=== PATIENT | female | born 2000 | race Hispanic/Latino ===

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

== ENCOUNTER 2022-01-22 22:06 | Emergency (ER) | payer MEDICAID ==
--- NOTE | 2022-01-23 02:18 | Emergency Department Report ---
ED General Adult HPI - General Chief complaint: Dental/Oral Stated complaint: BROKEN STITCH Source: patient Mode of arrival: Ambulatory Limitations: No Limitations - History of Present Illness Complaint: dental pain, swollen painful gums -: Sudden, week(s) (1) Location: mouth Radiation: non-radiation Severity scale (0 -10): 8 Quality: aching, sharp Consistency: constant Improves with: none Worsens with: eating Associated Symptoms: denies other symptoms. denies: confusion, chest pain, cough, fever/chills, headaches, loss of appetite, malaise, nausea/vomiting, shortness of breath, syncope, weakness Treatments Prior to Arrival: none - Related Data Home Medications Medication Instructions Recorded Confirmed Last Taken Citalopram [celeXA] 20 mg PO QDAY 11/25/21 11/25/21 11/23/21 Methylphenidate HCl 10 mg PO QAM 11/25/21 11/25/21 11/23/21 [Methylphenidate ER] Previous Rx's Medication Instructions Recorded Last Taken Type Ondansetron [Zofran Odt] 4 mg PO Q8HR PRN 10 Days #30 11/25/21 Unknown Rx tab.rapdis Acetaminophen/Codeine [Tylenol 1 tab PO Q6H PRN #10 tab 01/23/22 Unknown Rx /Codeine # 3 tab] Clindamycin [Clindamycin CAP] 300 mg PO Q8H #30 cap 01/23/22 Unknown Rx Ketorolac [Toradol] 10 mg PO Q8H PRN #20 tab 01/23/22 Unknown Rx Allergies Allergy/AdvReac Type Severity Reaction Status Date / Time No Known Allergies Allergy Verified 11/25/21 10:12 ED Review of Systems ROS: Stated complaint: BROKEN STITCH Other details as noted in HPI ED Past Medical Hx - Past Medical History Hx Hypertension: Yes (gestational) Hx Heart Attack/AMI: No Hx Congestive Heart Failure: No Hx Diabetes: No Hx Deep Vein Thrombosis: No Hx Liver Disease: No Hx Renal Disease: No Hx Sickle Cell Disease: No Hx Seizures: No Hx Asthma: No Hx COPD: No Hx HIV: No - Surgical History Hx Pacemaker: No Hx Internal Defibrillator: No - Social History Smoking Status: Never Smoker - Medications Home Medications: Home Medications Medication Instructions Recorded Confirmed Last Taken Type Citalopram [celeXA] 20 mg PO QDAY 11/25/21 11/25/21 11/23/21 History Methylphenidate HCl 10 mg PO QAM 11/25/21 11/25/21 11/23/21 History [Methylphenidate ER] Ondansetron [Zofran Odt] 4 mg PO Q8HR PRN 10 Days #30 11/25/21 Unknown Rx tab.rapdis Acetaminophen/Codeine [Tylenol 1 tab PO Q6H PRN #10 tab 01/23/22 Unknown Rx /Codeine # 3 tab] Clindamycin [Clindamycin CAP] 300 mg PO Q8H #30 cap 01/23/22 Unknown Rx Ketorolac [Toradol] 10 mg PO Q8H PRN #20 tab 01/23/22 Unknown Rx ED Physical Exam - General Limitations: No Limitations ED Course Vital Signs 01/22/22 22:41 Temperature 98.5 F Pulse Rate 95 H Respiratory 12 Rate Blood Pressure 110/73 O2 Sat by Pulse 99 Oximetry Critical care attestation.: If time is entered above; I have spent that time in minutes in the direct care of this critically ill patient, excluding procedure time. ED Disposition Clinical Impression: Acute gingivitis, Dental abscess Disposition: 01 HOME / SELF CARE / HOMELESS Is pt being admited?: No Does the pt Need Aspirin: No Condition: Stable Instructions: Dental Abscess, [id number], Trench Mouth Additional Instructions: Take medication with food, drink plenty of fluids and follow-up with your dentist in 7 to 10 days for reevaluation. Return to the ED immediately if symptoms get worse. Prescriptions: Clindamycin [Clindamycin CAP] 300 mg PO Q8H #30 cap Ketorolac [Toradol] 10 mg PO Q8H PRN #20 tab PRN Reason: Pain Acetaminophen/Codeine [Tylenol /Codeine # 3 tab] 1 tab PO Q6H PRN #10 tab PRN Reason: Pain , Severe (7-10) Referrals: [facility] [Outside] - 7-10 days Time of Disposition: 02:16 Print Language: KOREAN
[2022-01-23] MEDS ORDERED: IBUPROFEN 600 MG TAB PO ONE (02:40)
[2022-01-23] MEDS ORDERED: ONDANSETRON 4 MG ODT TAB PO ONE (02:40)
[2022-01-23] MEDS ORDERED: HYDROcodone/ACETAMINOPHEN 5-325 MG TAB PO ONE (02:40)
[2022-01-23 03:18] VITALS: BP 110/75
== END 2022-01-23 03:14 | disposition home or self-care (01) ==
LOC: ED 22:06
DX: K05.00 Acute gingivitis, plaque induced (principal); K04.7 Periapical abscess without sinus; Z79.899 Other long term (current) drug therapy
CPT/HCPCS: 99282; J3490; Q0162

== ENCOUNTER 2022-05-21 01:58 | Emergency (ER) | payer MEDICAID ==
--- NOTE | 2022-05-21 09:04 | Emergency Department Report ---
ED N/V/D HPI - General Chief complaint: Nausea/Vomiting/Diarrhea Stated complaint: VOMITING Time Seen by Provider: 05/21/22 07:46 Source: patient Mode of arrival: Ambulatory Limitations: No Limitations - History of Present Illness MD complaint: nausea, vomiting, diarrhea, abdominal pain -: week(s) (2) Description of Vomiting: food contents, watery Description of Diarrhea: water Location: diffuse Radiation: none Severity: mild Worsens with: eating Associated Symptoms: nausea/vomiting. denies: myalgias, chest pain, diaphoresis, fever/chills, headaches, loss of appetite, rash, shortness of breath, syncope, weakness - Related Data Home Medications Medication Instructions Recorded Confirmed Last Taken Citalopram [celeXA] 20 mg PO QDAY 11/25/21 11/25/21 11/23/21 Methylphenidate HCl 10 mg PO QAM 11/25/21 11/25/21 11/23/21 [Methylphenidate ER] Previous Rx's Medication Instructions Recorded Last Taken Type Ondansetron [Zofran Odt] 4 mg PO Q8HR PRN 10 Days #30 11/25/21 Unknown Rx tab.rapdis Acetaminophen/Codeine [Tylenol 1 tab PO Q6H PRN #10 tab 01/23/22 Unknown Rx /Codeine # 3 tab] Clindamycin [Clindamycin CAP] 300 mg PO Q8H #30 cap 01/23/22 Unknown Rx Ketorolac [Toradol] 10 mg PO Q8H PRN #20 tab 01/23/22 Unknown Rx Allergies Allergy/AdvReac Type Severity Reaction Status Date / Time No Known Allergies Allergy Verified 11/25/21 10:12 ED Review of Systems ROS: Stated complaint: VOMITING Other details as noted in HPI Comment: All other systems reviewed and negative ED Past Medical Hx - Past Medical History Hx Hypertension: Yes (gestational) Hx Heart Attack/AMI: No Hx Congestive Heart Failure: No Hx Diabetes: No Hx Deep Vein Thrombosis: No Hx Liver Disease: No Hx Renal Disease: No Hx Sickle Cell Disease: No Hx Seizures: No Hx Asthma: No Hx COPD: No Hx HIV: No - Surgical History Hx Pacemaker: No Hx Internal Defibrillator: No - Social History Smoking Status: Current Every Day Smoker Substance Use Type: Marijuana - Medications Home Medications: Home Medications Medication Instructions Recorded Confirmed Last Taken Type Citalopram [celeXA] 20 mg PO QDAY 11/25/21 11/25/21 11/23/21 History Methylphenidate HCl 10 mg PO QAM 11/25/21 11/25/21 11/23/21 History [Methylphenidate ER] Ondansetron [Zofran Odt] 4 mg PO Q8HR PRN 10 Days #30 11/25/21 Unknown Rx tab.rapdis Acetaminophen/Codeine [Tylenol 1 tab PO Q6H PRN #10 tab 01/23/22 Unknown Rx /Codeine # 3 tab] Clindamycin [Clindamycin CAP] 300 mg PO Q8H #30 cap 01/23/22 Unknown Rx Ketorolac [Toradol] 10 mg PO Q8H PRN #20 tab 01/23/22 Unknown Rx ED Physical Exam - General Limitations: No Limitations General appearance: alert, in no apparent distress - Head Head exam: Present: atraumatic, normocephalic - Eye Eye exam: Present: normal appearance, PERRL, EOMI Pupils: Present: normal accommodation - ENT ENT exam: Present: mucous membranes moist - Neck Neck exam: Present: normal inspection, full ROM - Respiratory Respiratory exam: Present: normal lung sounds bilaterally, chest wall tenderness. Absent: respiratory distress, rales, rhonchi, stridor, accessory muscle use, prolonged expiratory - Cardiovascular Cardiovascular Exam: Present: regular rate, normal rhythm. Absent: systolic murmur, diastolic murmur, rubs, gallop - GI/Abdominal GI/Abdominal exam: Present: soft, normal bowel sounds. Absent: distended, tenderness, guarding, hyperactive bowel sounds, hypoactive bowel sounds, organomegaly, bruit - Extremities Exam Extremities exam: Present: normal inspection - Back Exam Back exam: Present: normal inspection - Neurological Exam Neurological exam: Present: alert, oriented X3 - Psychiatric Psychiatric exam: Present: normal affect, normal mood - Skin Skin exam: Present: warm, dry, intact, normal color. Absent: rash ED Course Vital Signs 05/21/22 05/21/22 02:14 08:05 Temperature 98.3 F 97.4 F L Pulse Rate 78 66 Respiratory 18 16 Rate Blood Pressure 115/76 Blood Pressure 94/48 [Right] O2 Sat by Pulse 100 99 Oximetry Critical care attestation.: If time is entered above; I have spent that time in minutes in the direct care of this critically ill patient, excluding procedure time. ED Disposition Condition: Stable
[2022-05-21 09:28] LABS: Basophils % (Auto) 0.7 % (0.0-1.8); Eosinophils # (Auto) 0.1 K/mm3 (0.0-0.4); Eosinophils % (Auto) 1.8 % (0.0-4.3); Hematocrit 39.4 % (30.3-42.9); Hemoglobin 12.8 gm/dl (10.1-14.3); Lymphocytes # (Auto) 1.8 K/mm3 (1.2-5.4); Lymphocytes % (Auto) 29.2 % (13.4-35.0); Mean Corpuscular HGB Conc 33 % (30-34); Mean Corpuscular Volume 83 fl (79-97); Monocytes # (Auto) 0.4 K/mm3 (0.0-0.8); Monocytes % (Auto) 6.7 % (0.0-7.3); Platelet Count 213 K/mm3 (140-440); Red Blood Count 4.75 M/mm3 (3.65-5.03); Red Cell Distribution Width 14.9 % (13.2-15.2)
[2022-05-21 09:45] LABS: Alanine Aminotransferase 49 units/L (7-56); Albumin 4.2 g/dL (3.9-5); Blood Urea Nitrogen 9 mg/dL (7-17); Calcium 9.3 mg/dL (8.4-10.2); Hemolysis Index 12
[2022-05-21 10:11] LABS: BUN/Creatinine Ratio 15
[2022-05-21 11:44] LABS: Bacteria,Urine 2+ /HPF (Negative)
[2022-05-21 12:45] LABS: RBC,Urine > 182.0 /HPF (0.0-6.0)
[2022-05-21 12:46] LABS: Color,Urine Amber (Yellow)
[2022-05-21 12:47] LABS: HCG Qualitative,Urine Negative (Negative)
[2022-05-21 13:40] VITALS: BP 123/86
== END 2022-05-21 13:41 | disposition home or self-care (01) ==
LOC: ED 01:58
DX: R11.2 Nausea with vomiting, unspecified (principal); R19.7 Diarrhea, unspecified; R10.9 Unspecified abdominal pain; I10 Essential (primary) hypertension; F17.200 Nicotine dependence, unspecified, uncomplicated
CPT/HCPCS: 36415; 80053; 81001; 81025; 83690; 84703; 85025; 87086; 99283